=== PATIENT | male | born 1995 | race Caucasian/White ===

== ENCOUNTER 2019-05-02 16:45 | Inpatient (IN) | payer BC ==
[~2019-05-02] VITALS: Ht 170.2 cm; Wt 71.9 kg
[2019-05-02 18:20] VITALS: BP 122/81
[2019-05-02 19:56] LABS: BASO % 0.5 % (0.0-1.0); EOS # 0.2 10*3/uL (0.0-0.4); EOS % 2.8 % (1.0-4.0); HEMATOCRIT 39.2 % (42.0-52.0); HEMOGLOBIN 13.2 g/dl (14.0-18.0); LYMPH # 2.2 10*3/uL (1.3-4.4); LYMPH % 37.9 % (27.0-41.0); MEAN CELL VOLUME 88.9 fl (80.0-94.0); MEAN CORPUSCULAR HGB 29.9 pg (27.0-31.0); MEAN CORPUSCULAR HGB CONC 33.7 g/dl (33.0-37.0); MONO # 0.3 10*3/uL (0.1-1.0); MONO % 5.7 % (3.0-9.0); NEUT # 3.1 10*3/uL (2.3-7.9); NEUT % 52.9 % (47.0-73.0); PLATELET COUNT AUTOMATED 207 10*3/uL (130-400); RED BLOOD COUNT 4.41 10*6/uL (4.50-5.90); RED CELL DISTRI WIDTH 12.3 % (0-14.5); WHITE BLOOD COUNT 5.8 10*3/uL (4.8-10.8)
[2019-05-02 20:00] VITALS: BP 120/53
[2019-05-02 20:00] LABS: BILIRUBIN NEGATIVE (NEGATIVE); BLOOD NEGATIVE (NEGATIVE); CLARITY CLEAR (CLEAR); COLOR YELLOW (YELLOW); GLUCOSE NEGATIVE (NEGATIVE); KETONE NEGATIVE (NEGATIVE); LEUKO ESTERASE NEGATIVE (NEGATIVE); NITRITE NEGATIVE (NEGATIVE); SPECIFIC GRAVITY >= 1.030 (1.005-1.030); UROBILINOGEN 0.2 E.U./dl (0.2-1.0)
[2019-05-02 20:07] LABS: URINE AMPHETAMINES < 1000 (1000ng/ml); URINE BARBITURATES < 200 (200ng/ml); URINE BENZODIAZEPINES < 200 (200ng/ml); URINE CANNABINOIDS (THC) < 50 (50ng/ml); URINE COCAINE < 300 (300ng/ml); URINE METHADONE < 300 (300ng/ml); URINE OPIATES > 300 (300ng/ml)
[2019-05-02 20:09] LABS: URINE PHENCYCLIDINE < 25 (25ng/ml)
[2019-05-02 20:11] LABS: ALKALINE PHOSPHATASE 84 U/L (45-117); BUN 8 mg/dl (7-24); CHLORIDE 106 mmol/L (98-107); LIPASE 46 U/L (73-393); POTASSIUM 3.6 mmol/L (3.5-5.1); SGOT/AST 10 IU/L (3-35); SGPT/ALT 15 U/L (12-78); SODIUM 140 mmol/L (136-145)
[2019-05-02 20:12] LABS: ETHYL ALCOHOL < 3.0 mg/dl (<3)
[2019-05-02 20:31] LABS: EPITHELIAL CELLS 0-2; MUCOUS 1+; WBC 0-2 wbc/hpf (0-5)
[2019-05-02 22:00] VITALS: BP 120/53
[2019-05-03] VITALS: BP 132/87
[2019-05-03 08:00] VITALS: BP 108/70
[2019-05-03 16:00] VITALS: BP 114/55; BP 137/68
[2019-05-04] VITALS: BP 128/68
[2019-05-04 08:00] VITALS: BP 124/63
[2019-05-04 16:00] VITALS: BP 125/68
[2019-05-04 20:00] VITALS: BP 130/73
[2019-05-05] VITALS: BP 99/53
[2019-05-05 08:00] VITALS: BP 142/74
== END 2019-05-05 13:30 | disposition home or self-care (01) | DRG 897 ==
LOC: 4E 16:45
PROVIDERS: Internal Medicine; ADMIT Internal Medicine
DX: F11.23 Opioid dependence with withdrawal (principal); D64.9 Anemia, unspecified; R73.9 Hyperglycemia, unspecified; R00.0 Tachycardia, unspecified